=== PATIENT | male | born 1955 | race Caucasian/White ===

== ENCOUNTER → 2018-09-02 09:29 | Outpatient (CLI) | payer MEDICARE, OTHER, SELFPAY ==
--- NOTE | 2018-09-02 | DI.US.S_ITS ---
PROCEDURE: US ABDOMEN COMPLETE INDICATIONS: ABDOMINAL PAIN TECHNIQUE: Real-time scanning was performed of the abdominal and retroperitoneal organs, with image documentation. COMPARISON: None. FINDINGS: Liver: Liver is enlarged and coarsely echogenic. No focal hepatic lesion Gallbladder: Negative. No sonographic Do sign Biliary ducts: Intrahepatic bile ducts are non-dilated. Extrahepatic bile duct not well-visualized sonographically. Pancreas: Suboptimal evaluation. Specifically, the pancreatic body and tail not well seen Spleen: Spleen is normal in size and homogeneous in echotexture. Kidneys: Kidneys are normal in size and echotexture. Right kidney measures 11.5 cm long; left kidney measures 12.5 cm long. No hydronephrosis or nephrolithiasis. No solid masses. Aorta: Visualized aorta is normal in caliber at less than 3 cm. however the proximal segment is not well-visualized. Iliacs: Not well visualized secondary to shadowing bowel gas IVC: Intrahepatic inferior vena cava is patent. Miscellaneous: No free abdominal fluid. IMPRESSION: Hepatomegaly with coarse increased echogenicity suggesting diffuse hepatocellular disease/fatty infiltration. Normal appearance of the gallbladder. Suboptimal examination as specified above. Dictated by: Gordo Cho M.D. on 09/02/2018 at 10:54 Approved by: Gordo Cho M.D. on 09/02/2018 at 10:57
[2018-09-02 11:25] LABS: Hep C Virus Ab w/Reflex Quant NEGATIVE s/c (NEGATIVE)
== END ==
PROVIDERS: PCP Internal Medicine; Visit Provider Internal Medicine
DX: R10.9 Unspecified abdominal pain (principal); R74.0 Nonspecific elevation of levels of transaminase and lactic acid dehydrogenase [LDH]; R16.0 Hepatomegaly, not elsewhere classified
CPT/HCPCS: 36415; 76700; 86803

== ENCOUNTER → 2018-11-27 14:25 | Outpatient (CLI) | payer MEDICARE, OTHER, SELFPAY ==
--- NOTE | 2018-11-27 | DI.ECHO.S_ITS ---
[facility] +---------+ : : [address] : [place] : : : : [id number] : : : : Phone: [phone]+ Echocardiogram Report + + :Name: ASHLEY LIRA Study Date: 11/27/2018 Height: 72 in : :[facility] Exam Location: [place] Weight: 265 lb : : Gender: Male BSA: 2.4 m2 : :: 1955 Age: 63 yrs BP: 130/80 mmHg: :Reason For Study: Left Ventricular Hypertrophy : :Ordering Physician: Dr. Anglin : :Georgi Performed By: Livia Page : + + Interpretation Summary Left ventricular ejection fraction is estimated to be 55%. The right ventricle is borderline dilated. The left atrium is moderately dilated. The aortic root is mildly dilated. There is no significant valvular heart disease. Procedure: A two-dimensional transthoracic echocardiogram with color flow and Doppler was performed. The study quality was technically adequate. There is no prior echocardiogram noted for this patient. The patient was in normal sinus rhythm during the exam. Left Ventricle: The left ventricle is normal in size, wall thickness, and systolic function without any focal wall motion abnormalities. Left ventricular ejection fraction is estimated to be 55%. There are no obvious focal wall motion abnormalities noted but poor endocardial definition reduces the sensitivity for the detection of such. Right Ventricle: The right ventricle is borderline dilated. The right ventricular systolic function is normal. Atria: The left atrium is moderately dilated. The right atrium is mildly dilated. There is no Doppler evidence for an interatrial shunt. Mitral Valve: The mitral valve is normal in structure and function. There is trace mitral regurgitation. Aortic Valve: The aortic valve is trileaflet. The aortic valve opens well. No aortic regurgitation is present. Tricuspid Valve: The tricuspid valve is normal in structure and function. There is a trace or physiologic amount of tricuspid regurgitation. Pulmonary artery pressures cannot be estimated because of the lack of a measurable TR jet velocity. Pulmonic Valve: The pulmonic valve is not well seen, but is grossly normal. There is a trace or physiologic amount of pulmonic regurgitation. Great Vessels: The aortic root is mildly dilated. The ascending aorta is mildly enlarged. The pulmonary artery is not well visualized, but is probably normal size. The IVC is dilated (diameter is greater than 2.1 cm) yet it collapses greater than 50% with a sniff. This suggests a right atrial pressure of 8 mm Hg. Pericardium/ Pleura There is no pericardial effusion. There is an anterior echo-free space consistent with a fat pad. There is no pleural effusion. MMode/2D Measurements & Calculations LVIDd: 5.8 cm LVOT diam: 2.8 cm LVIDs: 4.1 cm Ao root diam: 4.1 cm FS: 29.8 % asc Aorta Diam: 4.1 cm EPSS: 0.70 cm IVSd: 0.68 cm LVPWd: 0.79 cm LV penaloza. diameter/BSA (cm/m^2): 2.4 LV sys. diameter/BSA (cm/m^2): 1.7 LA A2 area: 27.9 cm2 RA long axis: 5.0 cm LA A4 area: 25.4 cm2 RA area: 23.4 cm2 LA length (vol): 5.5 cm RA vol: 93.2 ml LA vol: 109.4 ml RA : 38.8 ml/m2 LA vol index: 45.6 ml/m2 IVC diam: 2.2 cm RVD1 (basal): 4.6 cm RVD2 (mid): 4.2 cm TAPSE: 2.2 cm Doppler Measurements & Calculations Ao V2 max: 117.2 cm/sec LVOT Max Isidoro: 78.8 cm/sec Ao V2 mean: 83.9 cm/sec LV V1 max P.5 mmHg Ao max P.5 mmHg LV V1 VTI: 17.2 cm Ao mean P.1 mmHg ROLAND(I,D): 4.6 cm2 Ao V2 VTI: 23.3 cm ROLAND(V,D): 4.2 cm2 sev ratio: 0.74 ROLAND indexed to BSA (cm^2/m^2): 1.9 MV E max isidoro: 76.0 cm/sec PA V2 max: 75.3 cm/sec MV A max isidoro: 61.2 cm/sec PA V2 mean: 53.9 cm/sec MV E/A: 1.2 PA mean P.3 mmHg Med Peak E' Isidoro: 5.5 cm/sec PA Accel Time: 0.14 sec E/E' med: 13.9 Lat Peak E' Isidoro: 9.9 cm/sec E/E' lat: 7.7 E/e' average: 10.8 MV dec time: 0.22 sec MV P1/2t: 65.7 msec MV P1/2t max isidoro: 76.7 cm/sec SV(LVOT): 107.8 ml MVA(P1/2t): 3.4 cm2 Reading Physician:04:16 PM
== END ==
PROVIDERS: PCP Internal Medicine; Visit Provider Internal Medicine
DX: I51.7 Cardiomegaly (principal); I77.89 Other specified disorders of arteries and arterioles
CPT/HCPCS: 93306